=== PATIENT | male | born 1955 | race American Indian/Alaskan Native ===

== ENCOUNTER 2018-05-09 09:10 | Emergency (ER) | payer BC ==
[2018-05-09 09:19] VITALS: BMI 26.6
[2018-05-09 09:20] VITALS: RESP 18
[2018-05-09] MEDS ORDERED: Sodium Chloride 0.9% 500 ML IV STA ×2 (09:38→10:22)
--- NOTE | 2018-05-09 09:38 | ED PDOC ---
Arrival/HPI - General Chief Complaint: Syncope Time Seen by Provider: 05/09/18 09:20 Historian: Patient - History of Present Illness Narrative History of Present Illness (Text): 05/09/18 09:38 A 62 year old male, whose past medical history includes diabetes and hypertension, presents to the emergency department, accompanied by Son, complaining of lightheadedness since earlier this morning. Patient reports he woke up this morning feeling like the room was spinning while he was laying down on his bed and states when standing up he almost fell over. Patient denies any appetite changes, fever, cough, or any other complaints. PMD: Dr. Leon Time/Duration: 1-3 hours (earlier this morning) Symptom Onset: Sudden Symptom Course: Improving Activities at Onset: Light Context: Home Past Medical History - Provider Review Nursing Documentation Reviewed: Yes - Infectious Disease Hx of Infectious Diseases: None - Cardiac Hx Hypertension: Yes - Endocrine/Metabolic Hx Diabetes Mellitus Type 2: Yes - Psychiatric Hx Substance Use: No - Suicidal Assessment Feels Threatened In Home Enviroment: No Family/Social History - Physician Review Nursing Documentation Reviewed: Yes Family/Social History: No Known Family HX Smoking Status: Never Smoked Hx Alcohol Use: Yes (occas) Frequency of alcohol use: Socially Hx Substance Use: No Hx Substance Use Treatment: No Allergies/Home Meds Allergies/Adverse Reactions: Allergies No Known Allergies Allergy (Verified 08/31/11 10:53) Home Medications: Home Meds Medication Instructions Recorded Confirmed Insulin Human Isophane (NPH)1 15 ml SC 08/31/11 08/31/11 [Humulin 70/30 70 U/ml-30 U/ml 1.5 ml] Metformin HCl [Metformin] 1,000 mg PO BID 08/31/11 08/31/11 Ramipril [Altace] 5 mg PO DAILY 08/31/11 08/31/11 Review of Systems - Physician Review All systems were reviewed & negative as marked: Yes - Review of Systems Constitutional: absent: Fevers Respiratory: absent: Cough Gastrointestinal: absent: Appetite Changes Neurological: Other (Lightheadedness) Physical Exam Vital Signs Reviewed: Yes Vital Signs Temp Pulse Resp BP Pulse Ox 05/09/18 09:11 97.8 F 83 18 163/87 H 100 Temperature: Afebrile Blood Pressure: Hypertensive Pulse: Regular Respiratory Rate: Normal Appearance: Positive for: Well-Appearing, Non-Toxic Pain Distress: None Mental Status: Positive for: Alert and Oriented X 3 Finger Stick Blood Glucose: 305 - Systems Exam Head: Present: Atraumatic, Normocephalic Pupils: Present: PERRL Extroacular Muscles: Present: EOMI Conjunctiva: Present: Normal Respiratory/Chest: Present: Clear to Auscultation, Good Air Exchange. No: Respiratory Distress, Accessory Muscle Use Cardiovascular: Present: Regular Rate and Rhythm, Normal S1, S2. No: Murmurs Abdomen: No: Tenderness, Distention, Peritoneal Signs Back: Present: Normal Inspection Upper Extremity: Present: Normal Inspection. No: Cyanosis, Edema Lower Extremity: Present: Normal Inspection. No: Edema Neurological: Present: GCS=15, CN II-XII Intact, Speech Normal Skin: Present: Warm, Dry, Normal Color. No: Rashes Psychiatric: Present: Alert, Oriented x 3, Normal Insight, Normal Concentration Medical Decision Making ED Course and Treatment: 05/09/18 09:40 Impression: 62 year old male presenting to the emergency room complaining of lightheadedness. Differential Diagnosis included but are not limited to: near syncope Plan: -- EKG -- Labs -- CBC -- Chest X-ray -- IV fluids -- Urinalysis -- Reassess and disposition Prior Visits: Notes and results from previous visits were reviewed. Progress Notes: 05/09/18 09:43 EKG: Ordered, reviewed, and independently interpreted the EKG. Rate : 83 BPM Rhythm : NSR Interpretation : Normal intervals. 05/09/18 10:51 Procedure: Chest X-ray Dictator: Suresh Rubi Impression: Minimal bibasilar atelectasis. 05/09/18 11:21 Patient received NS 1 L IVF and soon after felt much better. He stood up with ease and walked around the ED with no lightheadedness or dizziness. He had no chest pain or shortness of breathe in the ED. Orthostatics results are negative. Patient is ready for discharge and will follow up with primary care doctor and investor relations director. His is with him and was also explained all discharge instructions. She and he were advised were advised to return to the ED if symptoms worsen or any other concern. - Scribe Statement The provider has reviewed the documentation as recorded by the Jerry Saavedra All medical record entries made by the Dilanleia were at my direction and personally dictated by me. I have reviewed the chart and agree that the record accurately reflects my personal performance of the history, physical exam, medical decision making, and the department course for this patient. I have also personally directed, reviewed, and agree with the discharge instructions and disposition. Disposition/Present on Arrival - Present on Arrival Any Indicators Present on Arrival: No History of DVT/PE: No History of Uncontrolled Diabetes: No Urinary Catheter: No History of Decub. Ulcer: No History Surgical Site Infection Following: None - Disposition Have Diagnosis and Disposition been Completed?: Yes Diagnosis: Near syncope Disposition: HOME/ ROUTINE Disposition Time: 11:30 Patient Plan: Discharge Condition: IMPROVED Discharge Instructions (ExitCare): Syncope (Fainting) Additional Instructions: JUAN HESTER, thank you for letting us take care of you today. Your provider was Alberto Nuñez DO and you were treated for Near Syncope. The emergency medical care you received today was directed at your acute symptoms. If you were prescribed any medication, please fill it and take as directed. It may take several days for your symptoms to resolve. Return to the Emergency Department if your symptoms worsen, do not improve, or if you have any other problems. Please contact your doctor or call one of the physicians/clinics you have been referred to that are listed on the Patient Visit Information form that is included in your discharge packet. Bring any paperwork you were given at discharge with you along with any medications you are taking to your follow up visit. Our treatment cannot replace ongoing medical care by a primary care provider outside of the emergency department. Thank you for allowing the [facility] team to be part of your care today. If you had an X-Ray or CT scan: A Radiologist will review the ED reading if any change in treatment is needed we will contact you. If you had a blood, urine, or wound culture: It will take several days for the results, if any change in treatment is needed we will contact you. If you had an STI test: It will take 48 hours for the results. Please call after 1 week if you have not heard back. Referrals: Conrad Leon DO [Primary Care Provider] - Follow up with primary Edmar Correa MD [Staff Provider] - Follow up with primary Forms: [employer] ([place]ish), WORK NOTE
[2018-05-09 10:04] LABS: BASO # 0.02 K/mm3 (0.0-2.0); BASO % 0.3 % (0.0-3.0); EOS # 0.3 (0.0-0.7); EOS % 4.2 % (1.5-5.0); HEMOGLOBIN 15.7 g/dL (14.0-18.0); LYMPH # 1.6 (1.2-3.4); LYMPH % 25.1 % (22.0-35.0); MEAN CELL VOLUME 89.5 fl (80.0-105.0); MEAN CORPUSCULAR HEMOGLOBIN 31.6 pg (25.0-35.0); MEAN CORPUSCULAR HGB CONC 35.3 g/dl (31.0-37.0); MEAN PLATELET VOLUME 11.8 fl (7.0-11.0); MONO # 0.3 (0.1-0.6); MONO % 4.9 % (1.0-6.0); RBC 4.97 10^6/uL (3.5-6.1); RED CELL DISTRIBUTION WIDTH 13.2 % (11.5-14.5); WHITE BLOOD COUNT 6.5 10^3/uL (4.5-11.0)
--- NOTE | 2018-05-09 10:04 | RAD ---
Date of service: 05/09/2018 HISTORY: near synope COMPARISON: No prior. FINDINGS: LUNGS: Minimal bibasilar atelectasis PLEURA: No significant pleural effusion identified, no pneumothorax apparent. CARDIOVASCULAR: No aortic atherosclerotic calcification present. Normal cardiac size. No pulmonary vascular congestion. OSSEOUS STRUCTURES: No significant abnormalities. VISUALIZED UPPER ABDOMEN: Normal. OTHER FINDINGS: None. IMPRESSION: Minimal bibasilar atelectasis.
[2018-05-09 10:20] LABS: ALB/GLOB RATIO 1.1 (1.1-1.8); ALT/SGPT 20 U/L (7-56); AST/SGOT 22 U/L (17-59); BLOOD UREA NITROGEN 12 mg/dL (7-21); CALCIUM 9.2 mg/dL (8.4-10.5); GFR NON-AFRICAN AMERICAN > 60
[2018-05-09 10:22] LABS: TROPONIN I < 0.01 ng/mL
[2018-05-09 11:16] VITALS: BP 157/97; PULSE 75; TEMP 97.9; O2SAT 97
--- NOTE | 2018-05-09 20:02 | CARD ---
APPROVED REPORT Date of service: 05/09/2018 EKG Measurement Heart [id number] <Conclusion> Normal sinus rhythm Normal ECG
== END 2018-05-09 11:30 | disposition home or self-care (01) ==
LOC: ED 09:10
DX: R55 Syncope and collapse (principal); I10 Essential (primary) hypertension; E11.9 Type 2 diabetes mellitus without complications
CPT/HCPCS: 71045; 80053; 82550; 82948; 83615; 83735; 84484; 85025; 93005; 96360; 96361; 99285; J7040